=== PATIENT | male | born 1980 | race Caucasian/White ===

== ENCOUNTER 2021-05-09 03:17 | Inpatient (IN) | payer BC ==
[~2021-05-09] VITALS: Ht 170.2 cm; Wt 100.9 kg
[2021-05-09 03:00] VITALS: BP 160/105
[2021-05-09] MEDS ORDERED: [UNRECOGNIZED DRUG - REMARK] (03:24)
[2021-05-09 07:00] VITALS: BP 188/122
[2021-05-09] MEDS ORDERED: DOCUSATE SODIUM 100 MG CAPSULE. PO PRN (08:00)
[2021-05-09] MEDS ORDERED: ZOLPIDEM 5 MG TABLET. PO PRN (08:00)
[2021-05-09] MEDS ORDERED: MORPHINE SULFATE 4 MG/ML INJ. IVP PRN (08:00)
--- NOTE | 2021-05-09 08:21 | RAD ---
Single view of the chest. 05/09/2021 7:55 AM Indication: Reason: pneumothorax / Spl. Instructions: / History: Comparison: Chest radiograph, outside hospital, earlier today Findings: There is a left-sided, small caliber thoracostomy tube. Trace left apical pneumothorax pers ists. No focal infiltrate or effusion is seen. Right lung is clear. Heart size is normal. Bony thorax is intact. IMPRESSION: Left thoracostomy tube with trace left apical pneumothorax Electronically signed by: Pj Gore MD (05/09/2021 8:18 AM) [id number]
[2021-05-09 11:00] VITALS: BP 171/110
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
--- NOTE | 2021-05-09 11:37 | HP ---
DATE OF SERVICE: 05/09/2021 ADMIT DATE: 05/09/2021 CHIEF COMPLAINT: Shortness of breath, chest discomfort. HISTORY OF PRESENT ILLNESS: The patient is a pleasant 41-year-old male who I believe went to [facility] first. He presented with shortness of breath, chest discomfort. He has been transferred to our facility. A chest tube has been placed. We have consulted Pulmonary Medicine. PAST MEDICAL HISTORY: Tobacco abuse. ALLERGIES: None. FAMILY HISTORY: Diabetes. 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 He smokes, drinks socially. No drugs. MEDICATIONS: Reviewed, please refer to the MRAD. REVIEW OF SYSTEMS: GENERAL: No history of weight change, weakness or fevers. SKIN: No bruising, hair changes or rashes. EYES: No blurred, double or loss of vision. NOSE AND THROAT: No history of nosebleeds, hoarseness or sore throat. HEART: No history of palpitations, chest pain. LUNGS: Denies cough, hemoptysis, wheezing. GASTROINTESTINAL: Denies changes in appetite, nausea, vomiting, diarrhea or constipation. GENITOURINARY: No history of frequency, urgency, hesitancy or nocturia. NEUROLOGIC: Denies history of numbness, tingling, tremor or weakness. PSYCHIATRIC: No history of panic, anxiety or depression. ENDOCRINE: No history of heat or cold intolerance, polyuria or polydipsia. EXTREMITIES: Denies muscle weakness, joint pain, pain on walking or stiffness. PHYSICAL EXAMINATION: VITALS: Within normal limits and are stable. GENERAL: No apparent distress. Alert and oriented. HEENT: Normal cephalic atraumatic, external auditory canals are patent EYES: Extraocular muscles are intact, pupils are equally round and reactive to light and accommodation MUSCULOSKELETAL: Well developed, well nourished, good range of motion ENDOCRINE: No thyromegaly was palpated LYMPHATICS: No cervical chain or axillary nodes were noted HEMATOPOIETIC: No bruising NECK: Supple, no JVD, no thyromegaly was noted. LUNGS: Clear to auscultation in all lung lynne without rhonchi or wheezing. CHEST: He has a left sided chest tube to suction. HEART: RRR, S1, S2 present. Peripheral pulses intact, no obvious murmurs were noted. ABDOMEN: Soft, nontender. Positive bowel sounds no organomegaly, normal bowel sounds. EXTREMITIES: Without any cyanosis, clubbing, or edema. Pedal pulses intact, Homans sign is negative. NEUROLOGIC: Normal speech, normal tone. A and O x 3, moves all extremities, no obvious focal deficits. PSYCHIATRIC: Normal affect, normal mood. Stable. SKIN: No ulcerations or rashes, good skin turgor, no jaundice. VASCULAR: Good capillary refill, neurovascular bundle appears to be intact.. LABORATORY DATA: Pending. Chest x-ray shows left thoracotomy tube in place with trace left apical pneumothorax. ASSESSMENT AND PLAN: Pneumothorax. The patient has been admitted. We have consulted Pulmonary Medicine. We are suctioning the chest tube. Trend labs. Home meds. Deep venous thrombosis prophylaxis. Full code. MAX/PEARL/[facility] DR: MAX/olga TID: [id number]
[2021-05-09] MEDS: IPRATRPIUM/ALBUTEROL 0.5/2.5MG 3 ML NEBU. NEB SCH ×3 (12:00→20:43)
[2021-05-09 14:32] VITALS: BP 144/96
[2021-05-09 19:00] VITALS: BP 158/96
[2021-05-09 22:39] VITALS: BP 158/86
[2021-05-10 03:10] VITALS: BP 152/84
[2021-05-10 06:41] LABS: BASO # 0.1 x10^3/uL (0.0-0.2); BASO % 1 % (0-3); EOS # 0.2 x10^3/uL (0.0-0.7); EOS % 3 % (0-3); HEMOGLOBIN 15.7 g/dL (13.0-17.5); LYMPH # 1.9 x10^3/uL (1.0-4.8); LYMPH % 30 % (24-48); MEAN CORPUSCULAR HEMOGLOBIN 33 pg (25-35); MEAN CORPUSCULAR HGB CONC 34 g/dL (31-37); MEAN CORPUSCULAR VOLUME 95 fL (79-100); MONO # 0.5 x10^3/uL (0.0-1.1); MONO % 8 % (0-9); NEUT # 3.6 x10^3/uL (1.8-7.7); NEUT % 58 % (31-73); PLATELET COUNT 249 x10^3/uL (140-400); RED BLOOD COUNT 4.84 x10^6/uL (4.30-5.70); RED CELL DISTRIBUTION WIDTH 12.9 % (11.5-14.5); WHITE BLOOD COUNT 6.3 x10^3/uL (4.0-11.0)
[2021-05-10 06:53] LABS: ALBUMIN 3.3 g/dL (3.4-5.0); ALBUMIN/GLOBULIN RATIO 0.9 (1.0-1.7); CALCIUM 8.9 mg/dL (8.5-10.1); CREATININE 0.9 mg/dL (0.7-1.3); GFR 92.5; POTASSIUM 3.9 mmol/L (3.5-5.1); TOTAL BILIRUBIN 0.5 mg/dL (0.2-1.0); TOTAL PROTEIN 6.9 g/dL (6.4-8.2)
[2021-05-10 07:00] VITALS: BP 164/111
[2021-05-10] MEDS: IPRATRPIUM/ALBUTEROL 0.5/2.5MG 3 ML NEBU. NEB SCH ×4 (07:31→20:00)
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
--- NOTE | 2021-05-10 09:51 | RAD ---
Single view of the chest. 05/10/2021 8:50 AM Indication: Follow-up, pneumothorax, chest tube Comparison: Chest radiograph, yesterday Findings: Left-sided chest tube noted. No pneumothorax is identified. No pleural effusion is seen. Yelena ngs are grossly clear. Heart size is normal. No acute osseous changes are seen. IMPRESSION: 1. Left chest tube stable in position. No pneumothorax 2. No other acute cardiopulmonary process Electronically signed by: Pj Gore MD (05/10/2021 9:49 AM) [id number]
--- NOTE | 2021-05-10 10:29 | PDOC ---
PULMONARY PROGRESS NOTES DATE: 05/10/21 TIME: 10:24 Subjective no soa no air leak on chest tube Vitals Vital Signs Date Time Temp Pulse Resp B/P (MAP) Pulse Ox O2 Delivery O2 Flow Rate FiO2 05/10/21 07:31 97 Room Air 05/10/21 07:00 97.7 74 18 164/111 (128) 97.7 05/09/21 20:15 2.0 General: Alert, No acute distress Lungs: Clear Cardiovascular: S1 Abdomen: Soft Neuro Exam: Alert Extremities: No Edema Skin: Warm Labs Laboratory Tests Test 05/10/21 05:50 White Blood Count 6.3 x10^3/uL (4.0-11.0) Red Blood Count 4.84 x10^6/uL (4.30-5.70) Hemoglobin 15.7 g/dL (13.0-17.5) Hematocrit 46.0 % (39.0-53.0) Mean Corpuscular Volume 95 fL (79-100) Mean Corpuscular Hemoglobin 33 pg (25-35) Mean Corpuscular Hemoglobin Concent 34 g/dL (31-37) Red Cell Distribution Width 12.9 % (11.5-14.5) Platelet Count 249 x10^3/uL (140-400) Neutrophils (%) (Auto) 58 % (31-73) Lymphocytes (%) (Auto) 30 % (24-48) Monocytes (%) (Auto) 8 % (0-9) Eosinophils (%) (Auto) 3 % (0-3) Basophils (%) (Auto) 1 % (0-3) Neutrophils # (Auto) 3.6 x10^3/uL (1.8-7.7) Lymphocytes # (Auto) 1.9 x10^3/uL (1.0-4.8) Monocytes # (Auto) 0.5 x10^3/uL (0.0-1.1) Eosinophils # (Auto) 0.2 x10^3/uL (0.0-0.7) Basophils # (Auto) 0.1 x10^3/uL (0.0-0.2) Sodium Level 136 mmol/L (136-145) Potassium Level 3.9 mmol/L (3.5-5.1) Chloride Level 101 mmol/L (98-107) Carbon Dioxide Level 26 mmol/L (21-32) Anion Gap 9 (6-14) Blood Urea Nitrogen 12 mg/dL (8-26) Creatinine 0.9 mg/dL (0.7-1.3) Estimated GFR (Cockcroft-Gault) 92.5 BUN/Creatinine Ratio 13 (6-20) Glucose Level 106 mg/dL (70-99) Calcium Level 8.9 mg/dL (8.5-10.1) Total Bilirubin 0.5 mg/dL (0.2-1.0) Aspartate Amino Transf (AST/SGOT) 22 U/L (15-37) Alanine Aminotransferase (ALT/SGPT) 49 U/L (16-63) Alkaline Phosphatase 90 U/L (46-116) Total Protein 6.9 g/dL (6.4-8.2) Albumin 3.3 g/dL (3.4-5.0) Albumin/Globulin Ratio 0.9 (1.0-1.7) Laboratory Tests Test 05/10/21 05:50 White Blood Count 6.3 x10^3/uL (4.0-11.0) Red Blood Count 4.84 x10^6/uL (4.30-5.70) Hemoglobin 15.7 g/dL (13.0-17.5) Hematocrit 46.0 % (39.0-53.0) Mean Corpuscular Volume 95 fL (79-100) Mean Corpuscular Hemoglobin 33 pg (25-35) Mean Corpuscular Hemoglobin Concent 34 g/dL (31-37) Red Cell Distribution Width 12.9 % (11.5-14.5) Platelet Count 249 x10^3/uL (140-400) Neutrophils (%) (Auto) 58 % (31-73) Lymphocytes (%) (Auto) 30 % (24-48) Monocytes (%) (Auto) 8 % (0-9) Eosinophils (%) (Auto) 3 % (0-3) Basophils (%) (Auto) 1 % (0-3) Neutrophils # (Auto) 3.6 x10^3/uL (1.8-7.7) Lymphocytes # (Auto) 1.9 x10^3/uL (1.0-4.8) Monocytes # (Auto) 0.5 x10^3/uL (0.0-1.1) Eosinophils # (Auto) 0.2 x10^3/uL (0.0-0.7) Basophils # (Auto) 0.1 x10^3/uL (0.0-0.2) Sodium Level 136 mmol/L (136-145) Potassium Level 3.9 mmol/L (3.5-5.1) Chloride Level 101 mmol/L (98-107) Carbon Dioxide Level 26 mmol/L (21-32) Anion Gap 9 (6-14) Blood Urea Nitrogen 12 mg/dL (8-26) Creatinine 0.9 mg/dL (0.7-1.3) Estimated GFR (Cockcroft-Gault) 92.5 BUN/Creatinine Ratio 13 (6-20) Glucose Level 106 mg/dL (70-99) Calcium Level 8.9 mg/dL (8.5-10.1) Total Bilirubin 0.5 mg/dL (0.2-1.0) Aspartate Amino Transf (AST/SGOT) 22 U/L (15-37) Alanine Aminotransferase (ALT/SGPT) 49 U/L (16-63) Alkaline Phosphatase 90 U/L (46-116) Total Protein 6.9 g/dL (6.4-8.2) Albumin 3.3 g/dL (3.4-5.0) Albumin/Globulin Ratio 0.9 (1.0-1.7) Medications Active Scripts Medications Dose Route/Sig Max Daily Dose Days Date Category [No reported home med] 05/09/21 Reported Comments cxr 05/10 no ptx Impression . 1. Spontaneous left-sided pneumothorax in a patient who has likely severe chronic obstructive pulmonary disease and has bullous lung disease, especially on the left lung. This was likely etiology of patient's spontaneous pneumothorax. He also smokes meth as well as marijuana. This may have triggered this current episode of pneumothorax. 2. Prior history of bilateral pneumothorax, but it was related to trauma in 2002. 3. One pack per day of tobacco use since age 11. Continues to smoke cigarettes. The patient has underlying emphysema and suspect [id number] chronic obstructive pulmonary disease. 4. Substance abuse. This includes marijuana and meth. Plan . 1. No air leak seen. No PTX, will clamp today 2. Follow chest x-rays. 3. Smoking cessation counseling provided. 4. will remove the chest tube in am if no PTX 5. bronchodilators. 6. Discussed with RN. ILEANA SWANSON MD May 10, 2021 10:29
[2021-05-10 11:00] VITALS: BP 152/100
[2021-05-10 15:00] VITALS: BP 146/93
[2021-05-10 19:00] VITALS: BP 155/90
[2021-05-10 23:07] VITALS: BP 136/85
[2021-05-11 03:43] VITALS: BP 150/97
[2021-05-11 07:00] VITALS: BP 172/120
[2021-05-11 08:06] LABS: CALCIUM 8.5 mg/dL (8.5-10.1); GFR 81.9; POTASSIUM 3.7 mmol/L (3.5-5.1)
[2021-05-11] MEDS: IPRATRPIUM/ALBUTEROL 0.5/2.5MG 3 ML NEBU. NEB SCH ×2 (09:06→12:22)
--- NOTE | 2021-05-11 10:07 | RAD ---
XR CHEST 1V Clinical Indication: Reason: PTX / Spl. Instructions: / History: Comparison: AP chest, prior day. Findings: Small-caliber left chest tube is unchanged. The cardiomediastinal silhouette is normal. There are new mild bibasilar airspace opacities. There is no appreciable pneumothorax. No pleural effusion is appr eciated. No acute bone abnormality. IMPRESSION: 1. Stable left chest tube. No pneumothorax. 2. New mild bibasilar airspace opacities are probably atelectasis. Electronically signed by: Ren Milner MD (05/11/2021 10:05 AM) [id number]
--- NOTE | 2021-05-11 10:19 | PDOC ---
PULMONARY PROGRESS NOTES DATE: 05/11/21 TIME: 10:17 Subjective Patient remains on room air, no shortness of breath no cough, chest tube remained clamped overnight Vitals Vital Signs Date Time Temp Pulse Resp B/P (MAP) Pulse Ox O2 Delivery O2 Flow Rate FiO2 05/11/21 09:23 78 172/120 05/11/21 09:07 98 Room Air 05/11/21 03:43 97.7 18 97.7 05/10/21 20:00 2.0 ROS: No Nausea, No Chest Pain, No Abdominal Pain, No Increase Cough General: Alert, No acute distress Lungs: Clear Cardiovascular: S1 Abdomen: Soft Neuro Exam: Alert Extremities: No Edema Skin: Warm Labs Laboratory Tests Test 05/10/21 05:50 05/11/21 06:40 White Blood Count 6.3 x10^3/uL (4.0-11.0) Red Blood Count 4.84 x10^6/uL (4.30-5.70) Hemoglobin 15.7 g/dL (13.0-17.5) Hematocrit 46.0 % (39.0-53.0) Mean Corpuscular Volume 95 fL (79-100) Mean Corpuscular Hemoglobin 33 pg (25-35) Mean Corpuscular Hemoglobin Concent 34 g/dL (31-37) Red Cell Distribution Width 12.9 % (11.5-14.5) Platelet Count 249 x10^3/uL (140-400) Neutrophils (%) (Auto) 58 % (31-73) Lymphocytes (%) (Auto) 30 % (24-48) Monocytes (%) (Auto) 8 % (0-9) Eosinophils (%) (Auto) 3 % (0-3) Basophils (%) (Auto) 1 % (0-3) Neutrophils # (Auto) 3.6 x10^3/uL (1.8-7.7) Lymphocytes # (Auto) 1.9 x10^3/uL (1.0-4.8) Monocytes # (Auto) 0.5 x10^3/uL (0.0-1.1) Eosinophils # (Auto) 0.2 x10^3/uL (0.0-0.7) Basophils # (Auto) 0.1 x10^3/uL (0.0-0.2) Sodium Level 136 mmol/L (136-145) 139 mmol/L (136-145) Potassium Level 3.9 mmol/L (3.5-5.1) 3.7 mmol/L (3.5-5.1) Chloride Level 101 mmol/L (98-107) 103 mmol/L (98-107) Carbon Dioxide Level 26 mmol/L (21-32) 26 mmol/L (21-32) Anion Gap 9 (6-14) 10 (6-14) Blood Urea Nitrogen 12 mg/dL (8-26) 12 mg/dL (8-26) Creatinine 0.9 mg/dL (0.7-1.3) 1.0 mg/dL (0.7-1.3) Estimated GFR (Cockcroft-Gault) 92.5 81.9 BUN/Creatinine Ratio 13 (6-20) Glucose Level 106 mg/dL (70-99) 144 mg/dL (70-99) Calcium Level 8.9 mg/dL (8.5-10.1) 8.5 mg/dL (8.5-10.1) Total Bilirubin 0.5 mg/dL (0.2-1.0) Aspartate Amino Transf (AST/SGOT) 22 U/L (15-37) Alanine Aminotransferase (ALT/SGPT) 49 U/L (16-63) Alkaline Phosphatase 90 U/L (46-116) Total Protein 6.9 g/dL (6.4-8.2) Albumin 3.3 g/dL (3.4-5.0) Albumin/Globulin Ratio 0.9 (1.0-1.7) Laboratory Tests Test 05/11/21 06:40 Sodium Level 139 mmol/L (136-145) Potassium Level 3.7 mmol/L (3.5-5.1) Chloride Level 103 mmol/L (98-107) Carbon Dioxide Level 26 mmol/L (21-32) Anion Gap 10 (6-14) Blood Urea Nitrogen 12 mg/dL (8-26) Creatinine 1.0 mg/dL (0.7-1.3) Estimated GFR (Cockcroft-Gault) 81.9 Glucose Level 144 mg/dL (70-99) Calcium Level 8.5 mg/dL (8.5-10.1) Medications Active Scripts Medications Dose Route/Sig Max Daily Dose Days Date Category [No reported home med] 05/09/21 Reported Comments Chest x-ray 05/11/2021 IMPRESSION: 1. Stable left chest tube. No pneumothorax. 2. New mild bibasilar airspace opacities are probably atelectasis. Impression . 1. Spontaneous left-sided pneumothorax in a patient who has likely severe chronic obstructive pulmonary disease and has bullous lung disease, especially on the left lung. This was likely etiology of patient's spontaneous pneumothorax. He also smokes meth as well as marijuana. This may have triggered this current episode of pneumothorax.--- Status post left-sided chest tube, plan to DC today 2. Prior history of bilateral pneumothorax, but it was related to trauma in 2002. 3. One pack per day of tobacco use since age 11. Continues to smoke cigarettes. The patient has underlying emphysema and suspect [id number] chronic obstructive pulmonary disease. 4. Substance abuse. This includes marijuana and meth. Plan . Updated 05/11/21 Patient's respiratory status remains compensated Chest tube remained clamped overnight, chest x-ray without pneumothorax, will DC chest tube today Bronchodilators as needed Ongoing education on smoking cessation DVT/GI prophylaxis Discussed with RN and RT Okay to discharge home today from our standpoint 1. No air leak seen. No PTX, will clamp today 2. Follow chest x-rays. 3. Smoking cessation counseling provided. 4. will remove the chest tube in am if no PTX 5. bronchodilators. 6. Discussed with RN. ILEANA SWANSON MD May 11, 2021 10:19
[2021-05-11] MEDS ORDERED: AMLO-187 PO (11:25)
--- NOTE | 2021-05-11 11:50 | DS ---
DATE OF DISCHARGE: 05/11/2021 ADMITTING DIAGNOSIS: Spontaneous pneumothorax. DISCHARGE DIAGNOSES: Resolving spontaneous pneumothorax. HOSPITAL COURSE: The patient is a pleasant middle-aged male who suffered a left-sided spontaneous pneumothorax. He does smoke. We put a chest tube in and we consulted Pulmonary Medicine. Today, we pulled the chest tube. We looks great, wants to go home. Dr. Ramachandran is okay with him going. We plan to discharge. DISPOSITION: Home. ACTIVITY: As tolerated. DIET: Low sodium. MEDICATIONS: Norvasc 10 p.o. every day. TOTAL TIME: [address]: Toyin TID: [id number]
[2021-05-11 12:00] VITALS: BP 158/90
== END 2021-05-11 14:18 | disposition home or self-care (01) | DRG 201 ==
LOC: 5 NORTH 03:17
PROVIDERS: ADMIT Student in an Organized Health Care Education/Training Program; ATTEND Student in an Organized Health Care Education/Training Program
PROC: 0W9B30Z Drainage of Left Pleural Cavity with Drainage Device, Percutaneous Approach (ICD-10-PCS; principal; 2021-05-09)
DX: J93.83 Other pneumothorax (principal); F12.90 Cannabis use, unspecified, uncomplicated; F15.90 Other stimulant use, unspecified, uncomplicated; F17.210 Nicotine dependence, cigarettes, uncomplicated; I10 Essential (primary) hypertension; J43.9 Emphysema, unspecified; Z83.3 Family history of diabetes mellitus; E66.9 Obesity, unspecified; Z68.34 Body mass index [BMI] 34.0-34.9, adult
CPT/HCPCS: 36415; 71045; 80048; 80053; 85025; 94640; 94760; J2270; G0378